=== PATIENT | female | born 1940 | race Caucasian/White ===

== ENCOUNTER 2016-04-15 12:07 | Observation (INO) | payer MEDICARE ==
[2016-04-15] MEDS ORDERED: Ondansetron INJ* 2 MG/ML VIAL IV ONE (12:35)
[2016-04-15] MEDS ORDERED: Morphine INJ* 4 MG/ML 1 ML CARPUJECT IV ONE ×2 (12:35→16:29)
[2016-04-15] MEDS ORDERED: NS 0.9% 1000 ML* 1,000 ML IV ONE (12:35)
--- NOTE | 2016-04-15 12:36 | ED ---
Jermaine Magdaleno Adam, scribed for Sri Linda MD on 04/15/16 at 1229 . Back Pain - HPI Summary HPI Summary: Pt is a 76 year old female presenting with left sided flank pain. She states that she has been at home recovering from a knee replacement 03/16/16 (with Dr. Dove in [place]). She has been having nausea and decreased PO intake since surgery. She is on pain medication but she avoided the pain meds yesterday ( last dose last evening) and still felt nauseous. Yesterday she developed pain in her left flank which is now is left upper abdomen. Pt reports mild SOB and pain is worse with breathing. Last night she woke up with the pain radiating into the left side of her chest. Pt has had UTI since procedure - states was on Macrobid and yesterday completed a course of Cipro. She occasionally still has burning with urination. She denies discharge, itching, fever, chills, rashes, cough, sinus congestion, diarrhea, constipation. She is in physical therapy for the knee and states that she is doing well, although she has been having pain in her left calf since the surgery. Walks with cane or no assistive device. She was on Xarelto in the hospital and took x 3 days post-op, but is no longer on it. She denies any Hx of blood clots. No PMHx or FMHx of HTN or DM. Negative tobacco/drug use, occasional alcohol. Additional surgical Hx of hysterectomy and right knee operation. - History of Current Complaint Chief Complaint: EDFlankPain Stated Complaint: ABD/BACK PAIN / DIFF BREATHING Time Seen by Provider: 04/15/16 12:15 Hx Obtained From: Patient, Family/Pain Management Physician Onset/Duration: Gradual Onset, Lasting Days, Still Present Onset/Duration: Atraumatic Timing: Constant Back Pain Location: Is Discrete @ - Left flank, luq, Radiates To - Left side of chest Severity Initially: Moderate Severity Currently: Moderate Pain Intensity: 8 Pain Scale Used: 0-10 Numeric Aggravating Symptom(s): Movement - Deep breaths Alleviating Symptom(s): Nothing Associated Signs And Symptoms: Positive: Flank Pain, Other - Nausea, decreased PO intake, left calf pain. Negative: Redness, Fever, Weakness, Numbness - Allergies/Home Medications Allergies/Adverse Reactions: Allergies Allergy/AdvReac Type Severity Reaction Status Date / Time Sulfa Drugs Allergy Rash Verified 10/03/12 10:46 Home Medications: Home Medications Cholecalciferol TAB* [Vitamin D TAB*] 400 unit PO DAILY 04/15/16 [History Confirmed 04/15/16] buPROPion SR TAB* [Wellbutrin SR TAB*] 100 mg PO Q12HR 04/15/16 [History Confirmed 04/15/16] oxyCODONE/Acetamin 5/325 MG* [Percocet 5/325 TAB*] 1 tab PO Q4H PRN 04/15/16 [ History Confirmed 04/15/16] PMH/Surg Hx/FS Hx/Imm Hx Previously Healthy: Yes Endocrine/Hematology History: Reports: Hx Anticoagulant Therapy - xarelto x 3 days post op - none since Denies: Hx Diabetes Cardiovascular History: Denies: Hx Hypertension, Hx Pacemaker/ICD History: Reports: Other Problems/Disorders - 11/2011 BLOOD WORK INDICATED PROBLEM, DR RUSSO REPEATING Denies: Hx Renal Disease Musculoskeletal History: Reports: Hx Arthritis, Other Musculoskeletal History - RIGHT TKR 2007 Neurological History: Reports: Hx Migraine - MAYBE 3xYEAR Psychiatric History: Reports: Hx Depression - ON DAILY MEDS Denies: Hx Panic Disorder - Surgical History Surgery Procedure, Year, and Place: R KNEE REPLACEMENT 2009 [facility],25 PLUS YRS AGO LAPARSCOPY BLADDER,CATARACTS 5 YRS AGO Hx Anesthesia Reactions: No Infectious Disease History: No Infectious Disease History: Denies: Traveled Outside the [place] in Last 30 Days - Family History Known Family History: Negative: Hypertension, Diabetes - Social History Occupation: Retired Lives: With Family Alcohol Use: Rare Hx Substance Use: No Substance Use Type: Reports: None Hx Tobacco Use: No Smoking Status (MU): Never Smoked Tobacco Review of Systems Negative: Fever, Chills Negative: Nasal Discharge Positive: Chest Pain - Left side- left upper quad Negative: Cough Positive: Nausea, Other - Decreased PO intake. Negative: Diarrhea Positive: flank pain - Left. Negative: discharge Positive: Myalgia - Left calf Negative: Rash Negative: Weakness, Numbness Psychological: Normal All Other Systems Reviewed And Are Negative: Yes Physical Exam Triage Information Reviewed: Yes Vital Signs On Initial Exam: Initial Vitals Temp Pulse Resp BP Pulse Ox 98.2 F 62 16 149/70 99 04/15/16 12:08 04/15/16 12:08 04/15/16 12:08 04/15/16 12:08 04/15/16 12:08 Vital Signs Reviewed: Yes Appearance: Positive: Well-Appearing, No Pain Distress Skin: Positive: Warm, Skin Color Reflects Adequate Perfusion, Dry, Other - no rash, no discomfort with light palp surgical wound c/d/i Head/Face: Positive: Normal Head/Face Inspection Eyes: Positive: Normal, EOMI, JANUARY ENT: Positive: Pharynx normal, TMs normal Neck: Positive: Supple, Nontender, No Lymphadenopathy Respiratory/Lung Sounds: Positive: Clear to Auscultation. Negative: Stridor, Wheezes Cardiovascular: Positive: Normal, RRR. Negative: Murmur, Leg Edema Left, Leg Edema Right Abdomen Description: Positive: No Organomegaly, Soft. Negative: Nontender - mild TTP left upper quad under ribs Bowel Sounds: Positive: Present Musculoskeletal: Positive: Normal. Negative: Edema Left, Edema Right Neurological: Positive: Normal, Sensory/Motor Intact, Alert, Oriented to Person Place, Time. Negative: Slurred Speech Psychiatric: Positive: Normal AVPU Assessment: Alert - Ankit Coma Scale Best Eye Response: 4 - Spontaneous Best Motor Response: 6 - Obeys Commands Best Verbal Response: 5 - Oriented Diagnostics - Vital Signs Vital Signs Temp Pulse Resp BP Pulse Ox 04/15/16 12:08 98.2 F 62 16 149/70 99 - Laboratory Result Diagrams: 04/15/16 13:03 04/15/16 13:03 Lab Statement: Any lab studies that have been ordered have been reviewed, and results considered in the medical decision making process. - Radiology CXR Radiology Interpretation Completed By: Radiologist - IMPRESSION: Likely atelectasis of the left lung base in this otherwise nonacute chest x-ray. - CT A/P CT Interpretation Completed By: Radiologist - IMPRESSION: Fullness of both renal and ureteral collecting system without definite evidence of calculi. Left renal cyst is noted. Airspace disease in the left base may represent atelectasis or early pneumonia. CHEST/THORAX CTA CT Interpretation Completed By: Radiologist - IMPRESSION: FILLING DEFECT IN THE LEFT LOWER LOBE PULMONARY ARTERY EXTENDING INTO 2 SEGMENTAL ARTERIES. LEFT LOWER LOBE ATELECTASIS OR INFILTRATE IS NOTED. - EKG 12:32 Cardiac Rate: NL - 81 BPM EKG Rhythm: Sinus Rhythm - Normal EKG Interpretation: Flattened T waves in III. No STEMI - Additional Comments Diagnostic Additional Comments: Troponin I - 0.00 Re-Evaluation - Re-Evaluation First Eval Re-Evaluation Time: 14:31 - Pain is improved. Discussed CT results with her. Change: Improved Second Eval Re-Evaluation Time: 16:30 Change: Worse Comment: Pt with pain increased in LUQ - pleuritic in nature sats [address] with pt - + PE. Will start xarelto, analgesia. NC applied. d/w hospitalist regarding obv admission Back Pain Course/Dx - Course Course Of Treatment: Pt with progessive left flank, luq pain x 24 hours. Pt with mild SOB and pleuritic pain. Pt 4 weeks post op left TKR. diff: PE, Plueral effusion, PNA, PTX, gastritis, narcotic related nausea, CAD. Will check EKG, CXR. tele. IVF. analgesia, antiemtic. urine. CTA. ?imaging kidney - depends on urine. cbc/cmp/lipase/urine. close reassessment. pt and family understanding and agreement with plan - Diagnoses Provider Diagnoses: Pulmonary embolism, Pleurisy - Provider Notifications Discussed Care of Patient With: Radiology at 16:00. CTA positive for PE. 1615 - Dr. Munoz - obv admit Instructed by Provider To: Admit As Observation Discharge - Discharge Plan Condition: Improved Disposition: ADMITTED TO [facility] The documentation as recorded by the Jermaine kimbrough Adam accurately reflects the service I personally performed and the decisions made by me, Sri Linda MD.
--- NOTE | 2016-04-15 13:09 | RAD ---
INDICATION: Shortness of breath and left flank pain COMPARISON: Similar chest x-ray dated February 09, 2014 TECHNIQUE: Single AP portable view of the chest was obtained. FINDINGS: Image quality is compromised due to the relative inferiority of a portable chest x-ray. The heart and mediastinum exhibit normal size and contour. Linear density above the left hemidiaphragm could represent atelectasis. Otherwise the lungs are grossly clear. There is no evidence of a large pleural effusion. Visualized bones are normal for the patient's age. IMPRESSION: Likely atelectasis of the left lung base in this otherwise nonacute chest x-ray.
[2016-04-15 13:31] LABS: Hematocrit 37 % (35-47); Hemoglobin 12.1 g/dl (12.0-16.0); Mean Corpuscular HGB Conc 33 g/dl (31-36); Mean Corpuscular Hemoglobin 31 pg (27-31); Mean Corpuscular Volume 93 fL (80-97); Mean Platelet Volume 8 um3 (7.4-10.4); Red Blood Count 3.95 10^6/ul (4.0-5.4); Red Cell Distribution Width 14 % (10.5-15); White Blood Count 9.3 10^3/ul (3.5-10.8)
[2016-04-15 13:46] LABS: BUN/Creatinine Ratio 14.6 (8-20); Calcium 9.6 mg/dL (8.6-10.3); EGFR African American 67.2 (>60); EGFR Non-African American 52.2 (>60); Globulin 3.6 g/dL (2-4); Magnesium 2.1 mg/dL (1.9-2.7); Potassium 3.9 mmol/L (3.5-5.0); Total Bilirubin 0.7 mg/dL (0.2-1.0); Total Protein 7.6 g/dL (6.4-8.9)
[2016-04-15 14:18] LABS: Urine Bacteria Absent (Absent); Urine Bilirubin Negative (Negative); Urine Glucose Negative (Negative); Urine Nitrite Negative (Negative)
[2016-04-15] MEDS ORDERED: Iodixanol* (CONTRAST) 320 MG/ML 100 ML SDV IV ONE (15:04)
--- NOTE | 2016-04-15 15:59 | RAD ---
Indication: Shortness of breath, flank pain. CT of the abdomen and pelvis was performed without oral or IV contrast administration. Coronal and sagittal reconstructed images were obtained. There is fullness of the right ureter and right renal collecting system however no definite radiopaque calculi is noted. The left kidney also demonstrates a prominent left ureter. The lung bases demonstrate no pleural fluid. There is airspace disease in the left base consistent with atelectasis or early pneumonia. The heart is of normal size without evidence of pericardial effusion. The liver is normal in size. No focal lesions or intrahepatic ductal dilatation is noted. Area of typical focal fatty infiltration is noted in the anterior medial segment of the left lobe of liver. Shakes no mass or pancreatic duct dilatation. The common duct is not dilated. The spleen is normal in size. No adrenal lesions are noted. The kidneys demonstrates fullness of both renal collecting systems however no definite calculi are noted. There is a cyst in the upper pole of the left kidney measuring up to 5.1 cm. Atherosclerotic aorta is noted. No aneurysmal dilatation is noted. No retroperitoneal adenopathy is noted. No dilated loops of bowel are noted. The colon is filled with stool. The urinary bladder is otherwise unremarkable. No free fluid is identified. Diverticulosis of the sigmoid colon without definite evidence of diverticulitis is noted. IMPRESSION: Fullness of both renal and ureteral collecting system without definite evidence of calculi. Left renal cyst is noted. Airspace disease in the left base may represent atelectasis or early pneumonia.
--- NOTE | 2016-04-15 16:04 | RAD ---
Indication: Shortness of breath, recent total knee replacement. Contrast: Administered 71.9 ml of VISAPAQUE 320 mgi/ml. CTA of the chest was performed after IV contrast administration. Coronal and sagittal reconstructed images were obtained. The pulmonary arterial tree is well opacified. There is a filling defect in the left lower lobe pulmonary artery extending into the segmental arteries consistent with pulmonary embolus. Adjacent airspace disease in the left lower lobe is noted. There is no mediastinal or hilar adenopathy. The heart demonstrates no pericardial effusion. The trachea and major bronchi appear patent. Lung marlow demonstrate atelectasis or early infiltrate in the left lower lobe. No focal nodules are identified. The axilla demonstrates no evidence of abnormal adenopathy. The visualized abdominal organs are otherwise unremarkable. IMPRESSION: FILLING DEFECT IN THE LEFT LOWER LOBE PULMONARY ARTERY EXTENDING INTO 2 SEGMENTAL ARTERIES. LEFT LOWER LOBE ATELECTASIS OR INFILTRATE IS NOTED. FINDINGS DISCUSSED WITH DR. HYDE AT 1600 HOURS.
[2016-04-15] MEDS ORDERED: Rivaroxaban TAB(*) 15 MG PO ONE (16:30)
[2016-04-15] MEDS ORDERED: Morphine INJ* 2 MG/ML 1 ML CARPUJECT IV PRN (17:05)
[2016-04-15] MEDS ORDERED: NS 0.9% 1000 ML* 1,000 ML IV SCH (17:15)
[2016-04-15] MEDS: FLUoxetine CAP* 20 MG PO SCH (20:10)
--- NOTE | 2016-04-15 20:44 | HP ---
ADMISSION HISTORY AND PHYSICAL: DATE OF ADMISSION: 04/15/16 PRIMARY CARE PROVIDER: Dr. Jones. HEALTHCARE PROXY: Her . CODE STATUS: Full. SOURCE OF INFORMATION: History obtained from interview with the patient/with her . RELIABILITY: Fair. CHIEF COMPLAINT: Left flank pain. HISTORY OF PRESENT ILLNESS: This is a 76-year-old female with recent left knee replacement, 03/16/16, with Dr. Dove in [place], who was on 3 days of Xarelto postop, discharged home, had been doing well; however, had nausea and decreased p.o. intake with increasing shortness of breath over the last several days, described as "coping for air." She noted left-sided chest pain with deep inspiration. A day prior to admission, she developed back pain and then overnight developed what was described as right flank pain. Because of increasing pain, she presented to the emergency room. Additionally, she had recent urinary tract infection, treated with Macrobid with symptoms of dysuria and urinary frequency. Her Macrobid was changed to ciprofloxacin because of continued symptoms on 04/08/16 and she finished her last dose yesterday. Currently denies dysuria, urinary frequency or hesitancy, but still does have right-sided flank pain worse with deep inspiration. In the emergency room, a CAT scan was performed notable for pulmonary embolism. Hospitalist service was consulted for admission. 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 MEDICATIONS: 1. Prozac 40 mg daily. 2. Wellbutrin 100 mg daily. ALLERGIES: SULFA. FAMILY HISTORY: Negative for CAD or lung diseases. SOCIAL HISTORY: No tobacco. Rare wine. REVIEW OF SYSTEMS: As per HPI, otherwise all other systems negative. PHYSICAL EXAMINATION GENERAL: Sitting up in bed, interactive, pleasant, in no apparent distress. VITAL SIGNS: In the emergency room, 137/60, heart rate 79, respiratory rate 16 , 94% on room air, T-max in the emergency room 98.2. HEENT: Oropharynx is clear. Moist mucous membranes. Sclerae anicteric. LUNGS: Clear to auscultation. HEART: Regular rate and rhythm. No murmurs, rubs, or gallops. ABDOMEN: Soft, nontender, and nondistended. EXTREMITIES: Warm and well perfused without clubbing, cyanosis, or edema. She is intact neurovascularly throughout. NEUROLOGIC: She is A and O x3. Cranial nerves II through XII are intact. LABORATORY DATA: Reviewed. White blood cell count 9.3, hemoglobin 12.1, platelets 325. INR is 0.99. BUN 15, creatinine 1.03. Urine has positive red blood cells, squamous epithelial cells, absent for bacteria, leuk esterase, or nitrites. Data reviewed. CTA of chest and thorax, impression: Filling defect in the left lower lobe pulmonary artery extending into segmental arteries. Left lower lobe atelectasis or infiltrate is noted. Abdominal and pelvis CT scan, impression: Fullness of both renal and ureteral collecting systems without definite evidence of calculi. Left renal cyst is noted. Airspace disease in the left base may represent atelectasis or early pneumonia. ASSESSMENT AND PLAN: This is a 76-year-old female, recent left knee replacement , now presenting with flank pain, found in pulmonary embolism. 1. Pulmonary embolism. Admitted to the hospital for initiation of Xarelto. Red blood cells noted on urine may be in the setting of recent urinary tract infection. Monitoring overnight for initiation of anticoagulation. 1 L fluid overnight slowly. 2. Recent urinary tract infection without evidence of infection based on urinalysis in the emergency room. We will hold on antibiotics. 3. Atelectasis versus infiltrate on CAT scan. Afebrile. No evidence of infection based on symptoms nor vital signs. Hold on antibiotics, start if evidence of fevers or increasing leukocytosis. 4. Recent knee replacement. PT eval. 5. Depression. Continue Prozac and Wellbutrin. 6. DVT prophylaxis. Xarelto. 7. Code status full. CC: Dr. Jones * [id number]/[facility] #: [id number] [facility]
[2016-04-16] MEDS ORDERED: SUMAtriptan TAB* 50 MG PO PRN (03:49)
[2016-04-16] MEDS ORDERED: Rivaroxaban TAB(*) 15 MG PO SCH (08:00)
[2016-04-16 08:22] VITALS: BP 130/70
[2016-04-16] MEDS: FLUoxetine CAP* 20 MG PO SCH (08:51)
[2016-04-16] MEDS ORDERED: buPROPion TAB* 100 MG PO SCH (09:00)
--- NOTE | 2016-04-16 09:42 | DS ---
DISCHARGE SUMMARY: DATE OF ADMISSION: 04/15/16 DATE OF DISCHARGE: 04/16/16 PRIMARY CARE PROVIDER: Dr. Jones. PRIMARY DIAGNOSIS: Pulmonary embolism. SECONDARY DIAGNOSES: 1. Depression. 2. Recent knee replacement. 3. Atelectasis versus infiltrate. MEDICATIONS ON DISCHARGE: 1. Xarelto 15 mg twice daily for 21 days, then start Xarelto 20 mg in the evening, taking with food. 2. Multivitamin one tab daily. 3. Vitamin D 400 units daily. 4. Aspirin 81 mg daily. 5. Wellbutrin SR 100 mg twice daily. 6. Oxycodone and acetaminophen one tab every 4 hours as needed for pain. 7. Imitrex 50 mg daily as needed for migraine. 8. Zofran 4 mg ODT every 6 hours as needed for nausea. 9. Prozac 20 mg twice daily. PERTINENT IMAGING STUDIES: 1. Chest, thorax CTA. Impression: Filling defect in the left lower lobe. Pulmonary artery extending into two segmental arteries. Left lower lobe atelectasis or infiltrate is noted. 2. CT abdomen and pelvis. Impression: Fullness of both renal and ureteral collecting systems without definite evidence of calculi. Left renal cyst. Airspace disease in the left base may represent atelectasias or early pneumonia. Diverticulosis of the sigmoid colon without definite evidence of diverticulitis. HISTORY OF PRESENT ILLNESS AND HOSPITAL COURSE: This is a 76-year-old female with recent knee replacement with Dr. Dove, discharged on 03/16/16, had recently been treated for a urinary tract infection, developed pleuritic chest pain, presented to the hospital and was found with new pulmonary embolism. CT abdomen and pelvis also was performed to rule out kidney stone. The patient was started on Xarelto and monitored overnight without incident. She felt improved the next day, although her pleuritic chest pain was not completely resolved. She required no oxygen on the day of discharge. She received gentle IV hydration upon admission. CT chest did indicate a possibility of consolidation versus atelectasis as indicated above. The patient had no leukocytosis with a white blood cell count of 9.3. No difficulty breathing, cough, nor fevers during the course of her hospital stay. She was monitored, and antibiotics were not initiated. She was counseled that should she develop increasing shortness of breath, fevers or cough, to represent to the emergency room or contact her primary care provider. She was recently treated for urinary tract infection as an outpatient with a urinalysis negative for bacteria , leukocyte esterase or nitrates. Final cultures is still pending at the time of this dictation. FOLLOWUP: At followup please: 1. Please ensure the patient appropriately transitions from twice daily Xarelto to once daily Xarelto in 21 days. Medication administration was discussed at length for the patient she acknowledged understanding. 2. Please followup for any evidence of pneumonia. Decision was made to treat incidental CT findings as atelectasis and not start antibiotics. Fever or increasing shortness of breath, cough may drive decision to her initiate antibiotics. 3. No other specific labs or vitals that need followup. Reasons to return to the hospital include, but not limited to recurrent or worsening symptoms, worsening pain, difficulty breathing, cough, chest pain, nausea, vomiting, lightheadedness, loss of consciousness, migraines that are atypical for her including different types of headaches that may be consistent with intracerebral bleeding, bright red blood per rectum or melena were discussed at length with the patient. She acknowledged understanding. TIME SPENT: Greater than 30 minutes were spent on discharge of this patient with greater than half spent [id number] with the patient. CC: Dr. Jones * [id number]/[facility] #: [id number] [place]
[2016-04-16] MEDS ORDERED: oxyCODONE/Acetamin 5/325 MG* TAB PO PRN (09:51)
== END 2016-04-16 10:45 | disposition home or self-care (01) ==
LOC: ED 12:07 → MEDTELE 17:05
PROVIDERS: ADMIT Internal Medicine; ATTEND Internal Medicine
DX: I26.99 Other pulmonary embolism without acute cor pulmonale (principal); F32.9 Major depressive disorder, single episode, unspecified; Z96.659 Presence of unspecified artificial knee joint
CPT/HCPCS: 36415; 71010; 71275; 74176; 80053; 81003; 81015; 83605; 83690; 83735; 84484; 85025; 85610; 85730; 87040; 93005; 94760; 96374; 96375; 99284; A9270-GY; G0378; J2270; J2405; Q9967

== ENCOUNTER 2016-04-18 16:00 | Emergency (ER) | payer MEDICARE ==
[2016-04-18] MEDS ORDERED: NS 0.9% 1000 ML* 1,000 ML IV ONE (16:45)
[2016-04-18] MEDS ORDERED: Morphine INJ* 4 MG/ML 1 ML CARPUJECT IV ONE ×2 (16:45→19:12)
[2016-04-18] MEDS ORDERED: LORazepam INJ* 2 MG/ML 1 ML VIAL IV PUSH ONE ×2 (16:46→19:12)
[2016-04-18 17:22] LABS: Hematocrit 35 % (35-47); Hemoglobin 11.5 g/dl (12.0-16.0); Mean Corpuscular HGB Conc 33 g/dl (31-36); Mean Corpuscular Hemoglobin 31 pg (27-31); Mean Corpuscular Volume 92 fL (80-97); Mean Platelet Volume 7 um3 (7.4-10.4); Red Blood Count 3.75 10^6/ul (4.0-5.4); Red Cell Distribution Width 14 % (10.5-15); White Blood Count 8.4 10^3/ul (3.5-10.8)
[2016-04-18 17:37] LABS: Albumin 3.7 g/dL (3.2-5.2); BUN/Creatinine Ratio 14.9 (8-20); C Reactive Protein 129.63 mg/L (< 5.00); Calcium 9.2 mg/dL (8.6-10.3); EGFR African American 74.7 (>60); EGFR Non-African American 58.1 (>60); Globulin 3.6 g/dL (2-4); Potassium 3.9 mmol/L (3.5-5.0); Total Bilirubin 0.6 mg/dL (0.2-1.0); Total Protein 7.3 g/dL (6.4-8.9)
[2016-04-18 18:35] LABS: Urine Bacteria Absent (Absent); Urine Bilirubin Negative (Negative); Urine Glucose Negative (Negative); Urine Nitrite Negative (Negative)
[2016-04-18] MEDS ORDERED: LORazepam TAB(*) 1 MG PO ONE (19:13)
--- NOTE | 2016-04-18 19:40 | RAD ---
INDICATION: Back pain COMPARISON: CT abdomen pelvis April 13, 2016 TECHNIQUE: Longitudinal and transverse scans of the kidneys and bladder were obtained. FINDINGS: Kidneys: The kidneys are normal in size and echogenicity. No renal calculi are identified. There is no hydronephrosis. There is an upper pole left renal cyst measuring 5.9 x 5.4 x 5.4 cm. The right kidney measures 9.0 x 4.4 x 4.5 cm and the left kidney 9.8 x 4.8 x 4.6 cm. Ureteral jets are document bilaterally. Other: None IMPRESSION: LEFT RENAL CYST, OTHERWISE NEGATIVE.
--- NOTE | 2016-04-18 20:11 | ED ---
Opal Magdaleno Michael, scribed for Emy Sr MD on 04/18/16 at 1650 . Back Pain - HPI Summary HPI Summary: 76 y/o female presents to the ED with a hx of a knee replacement conducted by Dr. Dove one month ago. She is currently off blood thinners that she was prescribed. After the surgery, the pt had lower back pain starting 5 days ago. She reports that the back pain radiated diffusely to her abd, and the back pain was not aggravated upon movement. Due to the pain, she visited [facility] ED and was dx with a PE in the lower left lung and cystitis. She was admitted to the hospital on 04/15/16 and discharged home on 04/16/16. She reports that her back pain was alleviated by the time of discharge. The pt notes that the back pain returned suddenly last night. She states that her back pain is in the left flank area and unlike last time, is aggravated with movement. She takes one Oxycodone every 4 hours, but the pain is not alleviated with medication. The pt also c/o nausea, and she denies v/d, abd pain, and dysuria. Before the new episode of back pain the pt was ambulating normally. - History of Current Complaint Chief Complaint: EDBackInjuryPain Stated Complaint: BACK PAIN/FEVER Time Seen by Provider: 04/18/16 16:21 Hx Obtained From: Patient, Family/Piper Helper, Medical Records Onset/Duration: Sudden Onset, Lasting Hours, Still Present Onset/Duration: Started Hours Ago, Still Present Timing: Constant Back Pain Location: Is Discrete @ - left flank Severity Initially: Moderate Severity Currently: Moderate Pain Intensity: 9 Pain Scale Used: 0-10 Numeric Aggravating Symptom(s): Movement Alleviating Symptom(s): Nothing Associated Signs And Symptoms: Positive: Negative - v/d. dysuria., Flank Pain, Other - nausea. Negative: Abdominal Pain - Allergies/Home Medications Allergies/Adverse Reactions: Allergies Allergy/AdvReac Type Severity Reaction Status Date / Time Sulfa Drugs Allergy Rash Verified 10/03/12 10:46 PMH/Surg Hx/FS Hx/Imm Hx Endocrine/Hematology History: Reports: Hx Anticoagulant Therapy - xarelto x 3 days post op - none since Denies: Hx Diabetes Cardiovascular History: Denies: Hx Hypertension, Hx Pacemaker/ICD Respiratory History: Denies: Hx Asthma, Hx Chronic Obstructive Pulmonary Disease (COPD), Other Respiratory Problems/Disorders History: Reports: Other Problems/Disorders - 11/2011 BLOOD WORK INDICATED PROBLEM, DR JONES REPEATING Denies: Hx Renal Disease Musculoskeletal History: Reports: Hx Arthritis, Other Musculoskeletal History - RIGHT TKR 2007 Sensory History: Reports: Hx Contacts or Glasses - reading Opthamlomology History: Reports: Hx Contacts or Glasses - reading Neurological History: Reports: Hx Migraine - MAYBE 3xYEAR Psychiatric History: Reports: Hx Depression - ON DAILY MEDS Denies: Hx Panic Disorder - Surgical History Surgery Procedure, Year, and Place: R KNEE REPLACEMENT 2009 [facility],25 PLUS YRS AGO LAPARSCOPY BLADDER,CATARACTS 5 YRS AGO Hx Anesthesia Reactions: No - Immunization History Date of Tetanus Vaccine: 2010 Date of Influenza Vaccine: 10/2015 Infectious Disease History: No Infectious Disease History: Denies: Traveled Outside the [place] in Last 30 Days - Family History Known Family History: Positive: Hypertension Negative: Diabetes - Social History Occupation: Retired Lives: With Family Alcohol Use: Rare Hx Substance Use: No Substance Use Type: Reports: None Hx Tobacco Use: No Smoking Status (MU): Never Smoked Tobacco Review of Systems Negative: Fever Positive: Nausea. Negative: Abdominal Pain, Vomiting, Diarrhea Negative: dysuria Positive: Other - lower back pain/flank pain-left All Other Systems Reviewed And Are Negative: Yes Physical Exam Triage Information Reviewed: Yes Vital Signs On Initial Exam: Initial Vitals Temp Pulse Resp BP Pulse Ox 99.2 F 97 20 162/70 97 04/18/16 16:01 04/18/16 16:01 04/18/16 16:01 04/18/16 16:01 04/18/16 16:01 Vital Signs Reviewed: Yes Appearance: Positive: Well-Appearing, No Pain Distress Skin: Positive: Warm, Skin Color Reflects Adequate Perfusion, Dry Eyes: Positive: EOMI, JANUARY ENT: Positive: Pharynx normal, TMs normal Neck: Positive: Supple, Nontender Respiratory/Lung Sounds: Positive: Clear to Auscultation, Breath Sounds Present , Other. Negative: Rales, Rhonchi, Wheezes Cardiovascular: Positive: RRR, Other - no rubs or gallops. Negative: Murmur Abdomen Description: Positive: Nontender, Soft, Other: - no rebound. Negative: Distended, Guarding Bowel Sounds: Positive: Present Musculoskeletal: Positive: Strength/ROM Intact. Negative: Edema Left, Edema Right Neurological: Positive: Sensory/Motor Intact, Alert, Oriented to Person Place, Time, CN Intact II-III Psychiatric: Positive: Affect/Mood Appropriate - [place] Coma Scale Coma Scale Total: 15 Diagnostics - Vital Signs Vital Signs Temp Pulse Resp BP Pulse Ox 04/18/16 16:01 99.2 F 97 20 162/70 97 - Laboratory Lab Results: Lab Results 04/18/16 04/18/16 04/18/16 Range/Units 17:10 17:10 18:19 WBC 8.4 (3.5-10.8) 10^3/ul RBC 3.75 L (4.0-5.4) 10^6/ul Hgb 11.5 L (12.0-16.0) g/dl Hct 35 (35-47) % MCV 92 (80-97) fL MCH 31 (27-31) pg MCHC 33 (31-36) g/dl RDW 14 (10.5-15) % Plt Count 292 (150-450) 10^3/ul MPV 7 L (7.4-10.4) um3 Neut % (Auto) 75.0 (38-83) % Lymph % (Auto) 13.2 L (25-47) % [place] % (Auto) 10.3 H (1-9) % Eos % (Auto) 0.8 (0-6) % Baso % (Auto) 0.7 (0-2) % Absolute Neuts (auto) 6.3 (1.5-7.7) 10^3/ul Absolute Lymphs (auto) 1.1 (1.0-4.8) 10^3/ul Absolute Monos (auto) 0.9 H (0-0.8) 10^3/ul Absolute Eos (auto) 0.1 (0-0.6) 10^3/ul Absolute Basos (auto) 0.1 (0-0.2) 10^3/ul Absolute Nucleated RBC 0 10^3/ul Nucleated RBC % 0 Sodium 134 (133-145) mmol/L Potassium 3.9 (3.5-5.0) mmol/L Chloride 100 L (101-111) mmol/L Carbon Dioxide 27 (22-32) mmol/L Anion Gap 7 (2-11) mmol/L BUN 14 (6-24) mg/dL Creatinine 0.94 (0.51-0.95) mg/dL Est GFR ( Amer) 74.7 (>60) Est GFR (Non-Af Amer) 58.1 (>60) BUN/Creatinine Ratio 14.9 (8-20) Glucose 115 H (70-100) mg/dL Calcium 9.2 (8.6-10.3) mg/dL Total Bilirubin 0.60 (0.2-1.0) mg/dL AST 23 (13-39) U/L ALT 19 (7-52) U/L Alkaline Phosphatase 110 H (34-104) U/L C-Reactive Protein 129.63 H (< 5.00) mg/L Total Protein 7.3 (6.4-8.9) g/dL Albumin 3.7 (3.2-5.2) g/dL Globulin 3.6 (2-4) g/dL Albumin/Globulin Ratio 1.0 (1-3) Urine Color Straw Urine Appearance Clear Urine pH 6.0 (5-9) Ur Specific [place] 1.003 L (1.010-1.030) Urine Protein Negative (Negative) Urine Ketones Negative (Negative) Urine Blood 2+ H (Negative) Urine Nitrate Negative (Negative) Urine Bilirubin Negative (Negative) Urine Urobilinogen Negative (Negative) Ur Leukocyte Esterase Negative (Negative) Urine WBC (Auto) Absent (Absent) Urine RBC (Auto) 2+(6-10/hpf) H (Absent) Ur Squamous Epith Cells Present H (Absent) Urine Bacteria Absent (Absent) Urine Glucose Negative (Negative) Result Diagrams: 04/18/16 17:10 04/18/16 17:10 Lab Statement: Any lab studies that have been ordered have been reviewed, and results considered in the medical decision making process. - Additional Comments Diagnostic Additional Comments: Renal US- Radiologist. Left renal cyst Re-Evaluation - Re-Evaluation 1st Re-Evaluation Time: 19:00 Change: Improved Comment: pt has improved with her first dose of pain medication. She will receive one more dose then be discharged home. Back Pain Course/Dx - Course Course Of Treatment: 76 yo female s/p knee replacement one month ago and s/p recent dx of PE here with low back pain. Pain is elicited with movement. Of note she has a foot drop on the left since her surgery and has had decreased sensation over the foot and leg since then she is in rehab for this. The sensation is returning. With the foot drop she can not do dorsiflexion of the great toe on the left. the surgical wound is clean dry and intact. She had a CT of the chest/abd/pelvis last week which was negative, but showed fullness of the b/l renal systems. An renal ultrasound today is normal. She does have microhematuria which she describes as her baseline. She does have an elevated crp which the pt and her family were made aware of, there is no associated wbc or fever and it may be related to post op inflammation or from the PE. Family is aware that they need to watch for signs of fever. I don't think this is an epidural abscess given that the foot drop was post op and is improving. I have told them to come back if any thing changes - Diagnoses Provider Diagnoses: Back pain Discharge - Discharge Plan Condition: Improved Disposition: HOME Prescriptions: LORazepam TAB(*) [Ativan TAB(*)] 0.5 mg PO Q4H PRN #10 tab MDD 6 PRN Reason: Spasms Patient Education Materials: Back Pain (ED) Referrals: Carolina Jones MD [Primary Care Provider] - Additional Instructions: You should follow up with Dr. Jones within the next 3-4 days. Please return the ED for worsening symptoms. The documentation as recorded by the Opal kimbrough Michael accurately reflects the service I personally performed and the decisions made by me, Emy Sr MD.
[2016-04-18 20:21] VITALS: BP 130/53
== END 2016-04-18 20:23 | disposition home or self-care (01) ==
LOC: ED 16:00
DX: M54.9 Dorsalgia, unspecified (principal); R30.0 Dysuria; R10.84 Generalized abdominal pain; R11.0 Nausea
CPT/HCPCS: 36415; 76775; 80053; 81003; 81015; 85025; 86140; 96374; 96375; 99283; A9270-GY; J2060; J2270